=== PATIENT | female | born 1970 | race Caucasian/White ===

== ENCOUNTER → 2024-06-13 09:06 | Outpatient (CLI) | payer OTHER, SELFPAY ==
--- NOTE | 2024-06-13 09:11 | DI.MRI.S_ITS ---
PROCEDURE: MR HIP RT WO CON INDICATIONS: bilateral hip pain TECHNIQUE: Noncontrast coronal T1 spin echo and STIR through the bony pelvis. Coronal and axial T2 fast spin echo with fat saturation, sagittal T1 spin echo, and oblique axial T2 fast spin echo with fat saturation through the hip. COMPARISON: None. FINDINGS: Image quality: Excellent. Bones and joints: Marrow signal of the visualized lower lumbar spine, the sacrum, and bilateral sacroiliac joints are unremarkable. No acute fracture or dislocation of either hip. No significant degenerative changes of either hip. No avascular necrosis of either femoral head. Prior screw track is seen in the right proximal femur. 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 Tendons and ligaments: The right iliopsoas, adductor, tendons unremarkable. Mild tendinosis of the right hamstring tendon, without tear. The right gluteal minimus tendon is unremarkable. Low-grade tear of the right gluteal medius at the greater trochanteric insertion. No right greater trochanteric bursitis. Susceptibility artifact about the right greater trochanter, postprocedural. Labrum and cartilage: Anterior labral tear. No paralabral cyst. No significant chondrosis of the right hip. Soft tissues: Unremarkable. IMPRESSION: 1. Anterior labral tear of the right hip. No paralabral cyst. 2. Low-grade tear of the right gluteal medius at the greater trochanteric insertion. 3. Prior screw tract in the right proximal femur. Dictated by: Sulema Sharp M.D. on 06/15/2024 at 11:05 Approved by: Sulema Sharp M.D. on 06/15/2024 at 11:14
--- NOTE | 2024-06-13 09:11 | DI.MRI.S_ITS ---
PROCEDURE: MR HIP LT WO CON INDICATIONS: bilateral hip pain TECHNIQUE: Noncontrast coronal T1 spin echo and STIR through the bony pelvis. Coronal and axial T2 fast spin echo with fat saturation, sagittal T1 spin echo, and oblique axial T2 fast spin echo with fat saturation through the hip. COMPARISON: [facility], CR, XR PELVIS WITH BILATERAL LATERAL HIPS, 05/27/2024, 8:49. FINDINGS: Image quality: Excellent. Bones and joints: Marrow signal marrow signal of the visualized lower lumbar spine, and the sacrum are unremarkable. 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 Marrow signal about the bilateral sacroiliac joints are unremarkable. No acute fracture or dislocation of either hip. No avascular necrosis of either femoral head. No significant degenerative changes of either hip. Prior screw track is seen in the right proximal femur. Tendons and ligaments: The left iliopsoas, adductor, and hamstring tendons are unremarkable. Low-grade tear of the left gluteal minimus and left gluteal medius at the great trochanteric insertion. Trace left greater trochanteric bursitis. Labrum and cartilage: Circumferential labral tear. No paralabral cyst. No significant chondrosis the left hip. Soft tissues: Unremarkable IMPRESSION: 1. Low-grade tear of the left gluteal minimus and medius at the greater trochanteric insertion. 2. Circumferential labral tear of the left hip. No paralabral cyst. Dictated by: Sulema Sharp M.D. on 06/15/2024 at 10:58 Approved by: Sulema Sharp M.D. on 06/15/2024 at 11:05
== END ==
PROVIDERS: Referring Provider Orthopaedic Surgery; Visit Provider Orthopaedic Surgery
DX: S76.011A Strain of muscle, fascia and tendon of right hip, initial encounter (principal); S76.012A Strain of muscle, fascia and tendon of left hip, initial encounter; S73.191A Other sprain of right hip, initial encounter; S73.192A Other sprain of left hip, initial encounter; M25.551 Pain in right hip; M25.552 Pain in left hip
CPT/HCPCS: 73721

== ENCOUNTER 2024-08-21 07:38 | Observation (INO) | payer OTHER, SELFPAY ==
[2024-08-21] VITALS (17 sets, daily range): BP systolic 97–176; BP diastolic 45–96; PULSE 55–102; RESP 12–17; TEMP 36.2–36.9; O2SAT 82–100; BMI 20.9
--- NOTE | 2024-08-21 | DI.RAD.S_ITS ---
PROCEDURE: XR ABDOMEN 1V INDICATIONS: LEFT STENT PLACEMENT TECHNIQUE: 2 spot fluoroscopic intra-operative images acquired by the Urology service. COMPARISON: None. FINDINGS/IMPRESSION: Fluoroscopy was utilized by the ordering provider for intra procedural guidance. Approved by: Randy Gill M.D. on 08/21/2024 at 22:54
--- NOTE | 2024-08-21 07:45 | DI.CT.S_ITS ---
PROCEDURE: CT ABDOMEN PELVIS W CON INDICATIONS: left flak pain and left lower quad pain TECHNIQUE: After the administration of intravenous contrast, axial sections acquired from the lung bases to the pubic symphysis. Coronal and sagittal reformats were performed. For radiation dose reduction, the following was used: automated exposure control, adjustment of mA and/or kV according to patient size. COMPARISON: None. FINDINGS: Image quality: Diagnostic. Lower Chest: No significant findings. ABDOMEN: Liver: No solid mass. Gallbladder: No radiopaque gallstones or wall thickening. Biliary ducts: No biliary dilation. Pancreas: No ductal dilation. Spleen: Size is within normal limits. Adrenal Glands: No adrenal nodules. Kidneys and Ureters: Delayed left nephrogram with questionable left renal parenchymal edema and severe hydronephrosis with a very prominent extrarenal pelvis and obstruction at the level of the UPJ. No calcified stone identified. Differential includes congenital UPJ obstruction with acute exacerbation, potentially obstruction by a noncalcified stone, cannot exclude transitional cell carcinoma. There is associated leakage of urine into the left perinephric space. Left ureter is not dilated. Stomach and Bowel: Normal colonic caliber, without significant wall thickening. Sigmoid diverticulosis without evidence of acute diverticulitis. Peritoneum: No abnormal intraperitoneal fluid. No free air. Ventral Wall: No significant ventral hernia. Abdominal Nodes: No retroperitoneal or mesenteric adenopathy by size criteria. Vessels: Aorta and inferior vena cava are normal in size. PELVIS: Pelvic Organs: Uterus is surgically absent. No adnexal masses.. Bladder: No bladder wall thickening, accounting for underdistention. Pelvic Nodes: No enlarged lymph nodes. Miscellaneous: No inguinal hernias are seen. Bones: No aggressive osseous abnormality. IMPRESSION: 1. There is an acute obstruction of the left kidney at the level of the UPJ with severe hydronephrosis and a delayed nephrogram. 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 There is a definite extrarenal pelvis. Consider obstructing non radiopaque stone. Cannot exclude possible obstructing neoplasm. No evidence of neoplasm by this study. There is leakage of urine into the left perinephric space. 2. Remote hysterectomy. 3. Sigmoid diverticulosis. Comment: Consider nephrostomy. Recommend consultation with urology for possible cystoscopic procedures to evaluate the etiology of the UPJ obstruction. Dictated by: Wiley Tirado M.D. on 08/21/2024 at 8:55 Approved by: Wiley Tirado M.D. on 08/21/2024 at 9:03
[2024-08-21] MEDS: MORPHINE 4 MG/ML INJ IV ×2 (07:58→09:58)
[2024-08-21] MEDS: ONDANSETRON 4 MG/2 ML INJ IV (07:59)
[2024-08-21 08:05] LABS: Alanine Aminotransferase 42 IU/L (<35); Albumin Globulin Ratio 1.5 (1.0-2.8); Alkaline Phosphatase 124 U/L (38-126); Aspartate Aminotransferase 38 IU/L (14-36); BUN Creatinine Ratio 13.5 (6-22); Blood Urea Nitrogen 15 mg/dL (7-17); Calcium 9.5 mg/dL (8.4-10.2); Carbon Dioxide 17 mmol/L (22-32); Chloride 103 mmol/L (98-107); Estimated Glomerular Filt Rate 59 mL/min (>60); Globulin 3.4 g/dL (1.7-4.1); Glucose 108 mg/dL (70-99); HEMOLYSIS < 15 (0-50); Potassium 3.5 mmol/L (3.4-5.1); Sodium 136 mmol/L (137-145); Total Protein 8.4 g/dL (6.3-8.2)
--- NOTE | 2024-08-21 08:06 | ED.BACK ---
HPI - Back Pain/Injury General Chief Complaint: Back Pain/Injury Stated Complaint: back pain Time Seen by Provider: 08/21/24 07:44 History of Present Illness HPI Narrative: Patient is a 53-year-old female history of chronic pain presenting today with pretty severe left-sided flank pain. It is not radiating down her legs she was now feeling nauseous which is new. She did receive some fentanyl in the ambulance. She was having some left lower quadrant pain as well. She does not have any prior history of kidney stone. She says the nausea just started. No chest pain or shortness of breath. Related Data Allergies Allergy/AdvReac Type Severity Reaction Status Date / Time bee venom protein (honey bee) Allergy Severe Anaphylaxis Verified 08/21/24 07:48 carisoprodol [From Soma] Allergy Severe Anaphylaxis Verified 08/21/24 07:48 hydromorphone [From Dilaudid] Allergy Severe Rash Verified 08/21/24 07:48 oxycodone [From Percocet] Allergy Intermediate Rash Verified 08/21/24 07:48 Exam Initial Vital Signs Initial Vital Signs: Vital Signs Pulse Rate 67 08/21/24 07:42 Pulse Oximetry 100 08/21/24 07:42 GENERAL: Alert 53-year-old female appears to be in significant and in no acute distress. HEENT: Head atraumatic,EOMI, pupils reactive, face symmetric, moist mucous membranes CARDIOVASCULAR: Regular rate and rhythm without murmurs, rubs or gallops. RESPIRATORY: Breath sounds equal bilaterally, no wheezes rales or rhonchi. ABDOMEN: Soft, mild left lower quadrant pain no guarding no rebound, no right lower quadrant pain no Strickland's sign : Mild left flank pain no right flank pain EXTREMITIES: Normal range of motion, no clubbing or edema. Neurovascularly intact NEUROLOGICAL: Alert and oriented x4.Normal gait and speech. Cranial nerves II through XII grossly intact. SKIN: Warm, dry, no laceration, no petechiae, no rashes or lesions. Course Orders Ordered: ED Orders 08/21/24 07:40 CBC Auto Diff [Complete Blood Count AUTO DIFF] Stat CMP [Comprehensive Metabolic Panel] Stat 08/21/24 07:45 CT abdomen pelvis w con Stat Lactated Ringer's (Lactated Ringers) 1,000 mls @ 42 mls/hr IV CONT JENS Lactated Ringer's (Lactated Ringers) 1,000 mls @ 21 mls/hr IV CONT JENS Levofloxacin (Levaquin) 500 mg in 100 mls @ 100 mls/hr IV NOW ONE Stop: 08/21/24 11:20 Discontinued Medications Hydromorphone HCl (Hydromorphone 0.5 Mg Inj) 0.5 mg IV NOW ONE Stop: 08/21/24 07:46 Last Admin: 08/21/24 07:58 Dose: Not Given Documented By: RB Ketorolac Tromethamine (Ketorolac 30 Mg/Ml Vial) 15 mg IV NOW ONE Stop: 08/21/24 07:46 Last Admin: 08/21/24 08:13 Dose: 15 mg Documented By: RB Morphine Sulfate (Morphine 4 Mg/Ml Inj) 4 mg IV NOW ONE Stop: 08/21/24 07:54 Last Admin: 08/21/24 07:58 Dose: 4 mg Documented By: RB Morphine Sulfate (Morphine 4 Mg/Ml Inj) 4 mg IV NOW ONE Stop: 08/21/24 09:43 Last Admin: 08/21/24 09:58 Dose: 4 mg Documented By: RB Ondansetron HCl (Ondansetron 4 Mg/2 Ml Inj) 4 mg IV NOW ONE Stop: 08/21/24 07:44 Last Admin: 08/21/24 08:14 Dose: Not Given Documented By: RB Ondansetron HCl (Ondansetron 4 Mg/2 Ml Inj) 4 mg IV NOW ONE Stop: 08/21/24 07:46 Last Admin: 08/21/24 07:59 Dose: 4 mg Documented By: RB Vital Signs Vital signs: Vital Signs - 8 hr 08/21/24 07:42 08/21/24 07:43 08/21/24 07:43 Temperature 97.7 F Pulse Rate 67 55 L Respiratory Rate 16 Blood Pressure 176/96 H 176/90 H Pulse Oximetry 100 97 Oxygen Delivery Method Room Air 08/21/24 07:43 08/21/24 08:00 08/21/24 08:01 Temperature Pulse Rate 66 55 L Respiratory Rate Blood Pressure 163/72 H Pulse Oximetry 100 98 Oxygen Delivery Method 08/21/24 08:01 08/21/24 08:24 08/21/24 08:30 Temperature Pulse Rate 55 L 61 64 Respiratory Rate Blood Pressure Pulse Oximetry 98 100 97 Oxygen Delivery Method 08/21/24 08:31 08/21/24 08:31 08/21/24 09:00 Temperature Pulse Rate 60 Respiratory Rate Blood Pressure 151/71 H 150/94 H Pulse Oximetry 100 Oxygen Delivery Method 08/21/24 09:00 08/21/24 09:30 08/21/24 09:30 Temperature Pulse Rate 65 62 Respiratory Rate Blood Pressure 166/74 H Pulse Oximetry 97 100 Oxygen Delivery Method MDM - Back Pain/Injury Lab Data 08/21/24 07:40 08/21/24 07:40 Labs: Lab Results 08/21/24 Range/Units 07:40 WBC 14.9 H (4.5-11.0) X10^3/uL RBC 4.11 (4.0-5.2) X10^6/uL Hgb 12.7 (12.0-16.0) g/dL Hct 38.6 (36-46) % MCV 93.9 (80-100) fL MCH 31.0 (26-34) PG MCHC 33.0 (30-36) % RDW 14.8 (11.6-14.8) % Plt Count 301 (150-400) X10^3/uL Neut % (Auto) 75.7 H (50-75) % Lymph % (Auto) 15.1 L (25-40) % [place] % (Auto) 7.2 (3-14) % Eos % (Auto) 1.5 L (2-4) % Baso % (Auto) 0.5 (0-2) % Neut # (Auto) 99304 H (5600-9403) /uL Lymph # (Auto) 2200 (5971-7463) /uL [place] # (Auto) 1100 H (0-900) /uL Eos # (Auto) 200 (0-450) /uL Baso # (Auto) 100 (0-100) /uL Sodium 136 L (137-145) mmol/L Potassium 3.5 (3.4-5.1) mmol/L Chloride 103 (98-107) mmol/L Carbon Dioxide 17 L (22-32) mmol/L BUN 15 (7-17) mg/dL Creatinine 1.11 H (0.52-1.04) mg/dL Estimated GFR 59 L (>60) mL/min BUN/Creatinine Ratio 13.5 (6-22) Glucose 108 H (70-99) mg/dL Calcium 9.5 (8.4-10.2) mg/dL Total Bilirubin 1.0 (0.2-1.3) mg/dL AST 38 H (14-36) IU/L ALT 42 H (<35) IU/L Alkaline Phosphatase 124 (38-126) U/L Total Protein 8.4 H (6.3-8.2) g/dL Albumin 5.0 (3.5-5.0) g/dL Globulin 3.4 (1.7-4.1) g/dL Albumin/Globulin Ratio 1.5 (1.0-2.8) Imaging Data CT scan - abdomen/pelvis: Radiologist's Impression: PROCEDURE: CT ABDOMEN PELVIS W CON INDICATIONS: left flak pain and left lower quad pain TECHNIQUE: After the administration of intravenous contrast, axial sections acquired from the lung bases to the pubic symphysis. Coronal and sagittal reformats were performed. For radiation dose reduction, the following was used: automated exposure control, adjustment of mA and/or kV according to patient size. COMPARISON: None. FINDINGS: Image quality: Diagnostic. Lower Chest: No significant findings. ABDOMEN: Liver: No solid mass. Gallbladder: No radiopaque gallstones or wall thickening. Biliary ducts: No biliary dilation. Pancreas: No ductal dilation. Spleen: Size is within normal limits. Adrenal Glands: No adrenal nodules. Kidneys and Ureters: Delayed left nephrogram with questionable left renal parenchymal edema and severe hydronephrosis with a very prominent extrarenal pelvis and obstruction at the level of the UPJ. No calcified stone identified. Differential includes congenital UPJ obstruction with acute exacerbation, potentially obstruction by a noncalcified stone, cannot exclude transitional cell carcinoma. There is associated leakage of urine into the left perinephric space. Left ureter is not dilated. Stomach and Bowel: Normal colonic caliber, without significant wall thickening. Sigmoid diverticulosis without evidence of acute diverticulitis. Peritoneum: No abnormal intraperitoneal fluid. No free air. Ventral Wall: No significant ventral hernia. Abdominal Nodes: No retroperitoneal or mesenteric adenopathy by size criteria. Vessels: Aorta and inferior vena cava are normal in size. PELVIS: Pelvic Organs: Uterus is surgically absent. No adnexal masses.. Bladder: No bladder wall thickening, accounting for underdistention. Pelvic Nodes: No enlarged lymph nodes. Miscellaneous: No inguinal hernias are seen. Bones: No aggressive osseous abnormality. IMPRESSION: 1. There is an acute obstruction of the left kidney at the level of the UPJ with severe hydronephrosis and a delayed nephrogram. 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 There is a definite extrarenal pelvis. Consider obstructing non radiopaque stone. Cannot exclude possible obstructing neoplasm. No evidence of neoplasm by this study. There is leakage of urine into the left perinephric space. 2. Remote hysterectomy. 3. Sigmoid diverticulosis. Comment: Consider nephrostomy. Recommend consultation with urology for possible cystoscopic procedures to evaluate the etiology of the UPJ obstruction. Dictated by: Wiley Tirado M.D. on 08/21/2024 at 8:55 Approved by: Wiley Tirado M.D. on 08/21/2024 at 9:03 MDM Narrative Medical decision making narrative: Patient is a 53-year-old female history of chronic pain presenting today with pretty significant left flank pain which radiates to her abdomen with some nausea. He reports that this is different from her previous pain. Blood work has been reviewed She was has a leukocytosis of 14.9 no anemia CMP shows sodium 136 potassium 3.5 chloride 103 carbon dioxide 17 BUN 15 creatinine 1.1 glucose 108 Bilirubin 1.0 AST 30 ALT 42 alk-phos 124 Urinalysis--still waiting CT imaging shows extrarenal pelvis leakage of urine into perinephric space, possible obstruction at the UPJ maybe an underlying congenital UPJ obstruction. 9:47 , urology, updated on patient's CT results has reviewed imaging himself in ED to see and evaluate patient himself. At this time we will go to OR for ureteral stent. Then likely discharge. Patient has received morphine and Toradol pain which has seemed to help some. Discharge Plan Departure Patient Disposition: Admitted to Surgery Clinical Impression: Hydronephrosis, left, Left flank pain Admit Date/Time: 08/21/24 10:11 Admit Provider: Izaiah Bautista
[2024-08-21 08:08] LABS: Add Manual Diff / Slide Review NO; Basophils Absolute Auto 100 /uL (0-100); Basophils Percent Auto 0.5 % (0-2); Eosinophils Absolute Auto 200 /uL (0-450); Eosinophils Percent Auto 1.5 % (2-4); Hematocrit 38.6 % (36-46); Hemoglobin 12.7 g/dL (12.0-16.0); Lymphocytes Absolute Auto 2200 /uL (1100-4500); Lymphocytes Percent Auto 15.1 % (25-40); Mean Corpuscular Volume 93.9 fL (80-100); Monocytes Absolute Auto 1100 /uL (0-900); Monocytes Percent Auto 7.2 % (3-14); Neutrophils Absolute Auto 11300 /uL (1500-7000); Neutrophils Percent Auto 75.7 % (50-75); Platelet Count 301 X10^3/uL (150-400); Red Blood Cell Count 4.11 X10^6/uL (4.0-5.2); Red Cell Distribution Width 14.8 % (11.6-14.8); White Blood Cell Count 14.9 X10^3/uL (4.5-11.0)
[2024-08-21] MEDS: KETOROLAC 30 MG/ML VIAL 15 MG IV (08:13)
--- NOTE | 2024-08-21 10:14 | P.CONS_ITS ---
History of Present Illness Consult details Date Patient Seen: 08/21/24 Time Patient Seen: 10:14 Chief complaint: left flank pain, nausea, vomiting Narrative: 53 y/o F presents via EMS for evaluation of severe left flank pain with associated nausea/vomiting. Briefly, her pain and discomfort started last night. It originates in her left flank and will radiate down into her left lower abdominal quadrant and left groin. The pain is described as sharp and stabbing in nature, rated as a 10/10. She also suffers from nausea w/ vomiting. She otherwise denies any dysuria, urinary frequency/urgency or suprapubic pain/discomfort. 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 Urology was consulted regarding further management. Meds Home Medications and Allergies Allergies Allergy/AdvReac Type Severity Reaction Status Date / Time bee venom protein (honey bee) Allergy Severe Anaphylaxis Verified 08/21/24 07:48 carisoprodol [From Soma] Allergy Severe Anaphylaxis Verified 08/21/24 07:48 hydromorphone [From Dilaudid] Allergy Severe Rash Verified 08/21/24 07:48 oxycodone [From Percocet] Allergy Intermediate Rash Verified 08/21/24 07:48 Review of Systems Review of Systems Narrative: CONSTITUTIONAL: Denies weight loss, fevers, chills. HEENT: Denies change in vision, hearing. RESP: Denies SOB, cough. CV: Denies palpations, CP. GI: Denies diarrhea. : Denies dysuria, hematuria, inability to void. MSK: Denies myalgia, joint pain. SKIN: Denies rash, pruritus. NEURO: Denies headache, syncope. PSYCH: Denies recent change in mood, anxiety, depression. Exam Vital Signs (past 8 hours): - 08/21/24 07:42 08/21/24 07:43 08/21/24 07:43 Temperature 97.7 F Pulse Rate 67 55 L Respiratory Rate 16 Blood Pressure 176/96 H 176/90 H Pulse Oximetry 100 97 Oxygen Delivery Method Room Air 08/21/24 07:43 08/21/24 08:00 08/21/24 08:01 Temperature Pulse Rate 66 55 L Respiratory Rate Blood Pressure 163/72 H Pulse Oximetry 100 98 Oxygen Delivery Method 08/21/24 08:01 08/21/24 08:24 08/21/24 08:30 Temperature Pulse Rate 55 L 61 64 Respiratory Rate Blood Pressure Pulse Oximetry 98 100 97 Oxygen Delivery Method 08/21/24 08:31 08/21/24 08:31 08/21/24 09:00 Temperature Pulse Rate 60 Respiratory Rate Blood Pressure 151/71 H 150/94 H Pulse Oximetry 100 Oxygen Delivery Method 08/21/24 09:00 08/21/24 09:30 08/21/24 09:30 Temperature Pulse Rate 65 62 Respiratory Rate Blood Pressure 166/74 H Pulse Oximetry 97 100 Oxygen Delivery Method Oxygen Delivery Method Room Air Narrative Exam Narrative: GEN: Alert and oriented X3. No acute distress. Well-nourished. EYES: PERRLA, EOMI. HENT: Moist mucus membranes, no scleral icterus, normal neck ROM. RESP: Unlabored breathing, equal rise and fall of chest bilaterally, no cyanosis appreciated. CV: No peripheral edema, unremarkable heart rate. ABD: Soft, non-tender, non-distended, no palpable masses. : L CVAT, no R CVAT. EXT: No edema, clubbing or cyanosis. SKIN: No rashes or lesions. NEURO: No focal neurologic deficits, CN II-XII grossly intact. PSYCH: Cooperative, appropriate mood and affect. Objective Labs 08/21/24 07:40 08/21/24 07:40 Labs: Laboratory Results - last 24 hr 08/21/24 07:40 WBC 14.9 H RBC 4.11 Hgb 12.7 Hct 38.6 MCV 93.9 MCH 31.0 MCHC 33.0 RDW 14.8 Plt Count 301 Neut % (Auto) 75.7 H Lymph % (Auto) 15.1 L [place] % (Auto) 7.2 Eos % (Auto) 1.5 L Baso % (Auto) 0.5 Neut # (Auto) 05206 H Lymph # (Auto) 2200 [place] # (Auto) 1100 H Eos # (Auto) 200 Baso # (Auto) 100 Sodium 136 L Potassium 3.5 Chloride 103 Carbon Dioxide 17 L BUN 15 Creatinine 1.11 H Estimated GFR 59 L BUN/Creatinine Ratio 13.5 Glucose 108 H Calcium 9.5 Total Bilirubin 1.0 AST 38 H ALT 42 H Alkaline Phosphatase 124 Total Protein 8.4 H Albumin 5.0 Globulin 3.4 Albumin/Globulin Ratio 1.5 Assessment & Plan Assessment and plan (1) Hydronephrosis, left: Status: Acute Plan: 53 y/o F w/ severe left flank pain, nausea and vomiting in the setting of a CT Abd/Pel that notes 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 Discussed that her WBC and sCr were otherwise largely unremarkable and not concerning for infection at the moment. Discussed that we could proceed forward with a cystoscopy and left ureteral stent placement for pain control, however, I cannot guarantee that this is the etiology of her pain or that it resolves her pain. 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 Discussed treatment options to include observation (not recommended given her poor pain control in the ER) vs a cystoscopy with left ureteral stent placement. Discussed risks of the procedure to include pain, bleeding, infection, injury to urethra/bladder/ureter, inability to access the ureter requiring discussion with Interventional Radiology regarding a possible ureteral stent placement in an antegrade fashion vs a possible nephroureteral stent and/or percutaneous nephrostomy tube, urinary tract infection, need for emergent open repair of bladder and/or ureter, need for future cystoscopy with left diagnostic ureteroscopy to evaluate her left renal collecting system. Informed consent was obtained in the ED today. (2) Left flank pain: Status: Acute Plan: Please see plan above. Time-Based Coding :: [TOTAL MINUTES] spent with patient and on the chart (including review of chart, obtaining history, exam, reviewing outside data, placing orders, documenting exam and treatment plan, and counseling patient) on [DATE]. PROFEE Charge Codes Inpatient or Observation consultation: [id number]
[2024-08-21] MEDS: LACTATED RINGERS 1,000 ML 42 ML IV (10:43)
[2024-08-21 11:00] LABS: Bacteria Urine Moderate (10-30); Culture Indicated Urine Specimen Cultured; Squamous Epithelial Cell Urine 1-5 /HPF (0-5/HPF); Urine Volume 10mL (spun); WBC Urine 5-10/HPF (0-5/HPF)
[2024-08-21 11:01] LABS: RBC Urine 0-1/HPF (0-5/HPF)
[2024-08-21] MEDS: ACETAMINOPHEN IV 1,000 MG/100 ML VIAL 400 MG IV (11:05)
[2024-08-21] MEDS: levoFLOXacin 500 MG/100 ML PIGGYBACK 100 MG IV (11:10)
--- NOTE | 2024-08-21 11:13 | SUR.OPER ---
Lithotomy on padded OR bed, head on pillow, arms secured on padded arm boards at <90 degrees abduction. Legs secured in padded yellow fins stirrups.
--- NOTE | 2024-08-21 11:40 | PM.OP.1 ---
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 Discussed that her WBC and sCr were otherwise largely unremarkable and not concerning for infection at the moment. Discussed that we could proceed forward with a cystoscopy and left ureteral stent placement for pain control, however, I cannot guarantee that this is the etiology of her pain or that it resolves her pain. 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 Discussed treatment options to include observation (not recommended given her poor pain control in the ER) vs a cystoscopy with left ureteral stent placement. Surgeon: Izaiah Bautista Click Yes if Unassisted: Yes Anesthesia Type: General Operative Notes Findings: Left severe hydronephrosis, left delayed nephrogram Closure Type: not applicable Specimen(s): other (urine culture) Estimated Blood Loss (mL): 1 Blood products transfused: none Procedure in detail: Patient was identified in the preoperative holding area and consent confirmed. She was then brought to the operating room where general anesthesia was induced.? She was then placed in the low lithotomy position. She was then prepped and draped in the usual sterile fashion. A surgical timeout was conducted and all were in agreement. Access to the bladder was obtained via a 21Fr cystoscope.? Clear urine was noted within the bladder, this fluid was sent for a urine culture. The left ureteral orifice was easily visualized and a 0.035 sensor tip ureteral guidewire was advanced through the ureteral orifice and into the left renal collecting system (a KUB was taken and notable for severe left hydronephrosis and retained contrast from her previous CT).? A 6Fr multi-length JJ ureteral stent without strings was then advanced over the ureteral guidewire and into the left renal collecting system.? Upon removal of the ureteral guidewire, a good curl was appreciated within the left renal pelvis upon fluoroscopy and visually within the bladder.? The bladder was then drained and the cystoscope was removed.? Anesthesia was reversed, she was extubated in the OR and transferred to the PACU in stable condition for recovery. Complications: none Post-operative Condition: stable Disposition: PACU Plan for aftercare: Discharge home from PACU. Will return to Urology clinic in 2 weeks for a symptom check.
[2024-08-21] MEDS: PHENAZOPYRIDINE 100 MG TABLET 200 MG PO (11:55)
== END 2024-08-21 12:32 | disposition home or self-care (01) ==
LOC: ED 10:10 → AC 10:12
PROVIDERS: Admitting Provider Urology; Emergency Provider Emergency Medicine; Referring Provider Emergency Medicine; Visit Provider Urology
PROC: (CPT 52332; principal; 2024-08-21 10:45)
DX: N13.30 Unspecified hydronephrosis (principal); T40.2X5A Adverse effect of other opioids, initial encounter; T42.8X5A Adverse effect of antiparkinsonism drugs and other central muscle-tone depressants, initial encounter; Z91.030 Bee allergy status
CPT/HCPCS: 52332; 74018; 74177; 76000; 80053; 81003; 81015; 81025; 85025; 87077; 87086; 87186; 96374; 96375; 96376; 99283; 99284; G0378; C2617; J0131; J1100; J1885; J1956; J2270; J2405; J2704; Q9967

== ENCOUNTER → 2024-09-03 10:56 | Outpatient (CLI) | payer OTHER, SELFPAY | PROVIDERS: Visit Provider Urology | DX: R10.9 Unspecified abdominal pain (principal); N13.30 Unspecified hydronephrosis | CPT/HCPCS: 87086 ==

== ENCOUNTER → 2025-02-28 09:42 | Outpatient (CLI) | payer OTHER, SELFPAY ==
--- NOTE | 2025-02-28 09:44 | DI.CT.S_ITS ---
PROCEDURE: CT FACIAL BONES W CON INDICATIONS: Basal cell carcinoma of skin of other parts of fac TECHNIQUE: After the administration of intravenous contrast, 2.5 mm axial sections acquired from the mid-neck to the frontal sinuses, with coronal and sagittal reformats. For radiation dose reduction, the following was used: automated exposure control, adjustment of mA and/or kV according to patient size. COMPARISON: None. FINDINGS: 2.1 x 2.1 cm ulcerating skin mass at the right superior orbital rim with loss of fat plane between the skin and underlying frontal bone but with no bony cortical change to suggest invasion. The inferior margin in of the mass extends to the superior margin of the orbital septum with no evidence of deeper invasion. Near complete opacification of the left maxillary sinus. Remaining sinuses are clear. Dental caries and periodontal disease. IMPRESSION: Skin mass at the right superior orbital rim. Dictated by: Nicolás Torres M.D. on 02/28/2025 at 11:02 Approved by: Nicolás Torres M.D. on 02/28/2025 at 11:19
== END ==
LOC: CT 09:43
PROVIDERS: PCP Family Medicine; Referring Provider Family Medicine; Visit Provider Dermatology MOHS-Micrographic Surgery
DX: C44.319 Basal cell carcinoma of skin of other parts of face (principal)
CPT/HCPCS: 70487; Q9967